=== PATIENT | female | born 1975 | race Caucasian/White ===

== ENCOUNTER 2017-07-28 14:11 | Emergency (ER) | payer MEDICAID, OTHER ==
[2017-07-28] MEDS: IBUPROFEN 200 MG TAB PO (15:31)
[2017-07-28] MEDS: ACETAMINOPHEN 500 MG TAB PO (15:31)
== END 2017-07-28 16:27 | disposition home or self-care (01) ==
LOC: FTE 14:11
DX: M25.571 Pain in right ankle and joints of right foot (principal); M54.5 Low back pain
CPT/HCPCS: 72220; 73610-RT; 73630; 81025; 99284-25